=== PATIENT | female | born 1975 | race Caucasian/White ===

== ENCOUNTER 2020-10-30 04:26 | Emergency (ER) | payer MEDICAID, MEDICARE ==
[~2020-10-30] VITALS: Ht 154.9 cm; Wt 91.2 kg
[2020-10-30] MEDS ORDERED: NITROGLYCERIN SINGLE TAB 0.4 MG SL ONE (04:59)
[2020-10-30] MEDS ORDERED: ASPIRIN 81 MG TABLET CHEW ONE (04:59)
[2020-10-30] MEDS ORDERED: SODIUM CHLORIDE FLUSH 10ML SYR IVF ONE (05:00)
[2020-10-30] MEDS ORDERED: NITROGLYCERIN SINGLE TAB 0.4 MG SL PRN (05:00)
[2020-10-30] MEDS ORDERED: ASPIRIN 81 MG TABLET CHEW PO ONE (05:00)
--- NOTE | 2020-10-30 05:00 | NUR ---
THIS IS A 45Y F THAT COMES IN FOR CHEST PAIN. PT REPORTS PAIN STARTED "A FEW DAYS AGO AND GOES DOWN MY LEFT ARM LIKE THIS" DENIES N/V, PALPATATIONS, NEW OR WORSENING SOB. PT STS SHE HAS A BAD HEART FROM BEING SEPTIC BUT DOES NOT TAKE ANY MEDS ON A DAILY BASIS AND STS "I DON'T EVEN KNOW IF I'M DIABETIC I HAVEN'T EVER HAD A CHECK UP." PT CONNECTED TO ALL MONITORING VSS NADN. SPEAKING IN FULL SENTENCES
--- NOTE | 2020-10-30 05:13 | NUR ---
PT MEDICATED PER MAR TOLERATED WELL
[2020-10-30 05:21] LABS: ALBUMIN 3.4 g/dL (3.4-5.0); ANION GAP 5 mmol/L (5-15); BASOPHILS % (AUTO) 2 % (0-1); CALCIUM 8.7 mg/dL (8.5-10.1); CHLORIDE 109 mmol/L (98-107); EOSINOPHILS % (AUTO) 1 % (1-7); LYMPHOCYTES % (AUTO) 40 % (22-44); MEAN CORPUSCULAR HEMOGLOBIN 30.5 pg (27.0-34.8); MEAN CORPUSCULAR HGB CONC 33.9 g/dL (32.4-35.8); MEAN PLATELET VOLUME 7.5 fL (7.4-10.4); MONOCYTES % (AUTO) 6 % (2-9); NEUTROPHILS % (AUTO) 51 % (42-75); PLATELET COUNT 377 x10^3/uL (130-400); RED BLOOD COUNT 4.61 x10^6/uL (3.82-5.3); RED CELL DISTRIBUTION WIDTH 12.8 % (9.6-15.2)
[2020-10-30 05:23] LABS: MD NO
[2020-10-30 05:26] LABS: ALANINE AMINOTRANSFERASE 28 U/L (12-78); ALKALINE PHOSPHATASE 104 U/L (45-117); BILIRUBIN,TOTAL 0.4 mg/dL (0.2-1.0); CREATININE 0.83 mg/dL (0.55-1.02); TROPONIN I < 0.015 ng/mL (0.000-0.045)
[2020-10-30 06:11] VITALS: BP 138/70
--- NOTE | 2020-10-30 06:26 | NUR ---
Patient/Caregiver given discharge instructions and they have confirmed that they understand the instructions. Patient ambulatory with steady gait.
== END 2020-10-30 06:56 | disposition home or self-care (01) ==
LOC: ED 06:27
DX: R07.89 Other chest pain (principal); R06.00 Dyspnea, unspecified; R94.31 Abnormal electrocardiogram [ECG] [EKG]; F17.200 Nicotine dependence, unspecified, uncomplicated
CPT/HCPCS: 36415; 71045; 80053; 83880; 84484; 85025; 85379; 93005; 99285